=== PATIENT | male | born 1970 | race Caucasian/White ===

== ENCOUNTER 2019-01-03 09:04 | Emergency (ER) | payer SELFPAY ==
[2019-01-03] MEDS ORDERED: HYDROmorphone 1 MG/ML Syringe IVPUSH ONE (09:29)
[2019-01-03] MEDS ORDERED: Metoclopramide 10 MG/2 ML SDV IVPUSH ONE (09:30)
[2019-01-03] MEDS ORDERED: Ketorolac 30 MG/ML SDV IVPUSH SCH (09:30)
[2019-01-03] MEDS ORDERED: Sodium Chloride 0.9% 1,000 ML IV SCH (09:30)
--- NOTE | 2019-01-03 09:43 | EDM.PDOC ---
ED HPI GENERAL MEDICAL PROBLEM - General Chief Complaint: Flank Pain Stated Complaint: SIDE PAIN Time Seen by Provider: 01/03/19 09:28 Source of Information: Reports: Patient History Limitations: Reports: No Limitations - History of Present Illness INITIAL COMMENTS - FREE TEXT/NARRATIVE: 48-year-old male presents the ED with acute onset of right flank pain rating down to his right groin and right testicle. Patient states he has a history of kidney stones but the last one was many years ago. He did have some pain in his right flank about a month ago while he was in [place] but he did not see a physician in this timeframe. Pain settled after 6 or 8 hours. She has vomited once from the intensity of the pain. He still has a feeling of need to void and his bowels have worked once as well. He started about 0630 hrs. this morning shortly after he got up and ready for the day. Has intensified as the day has gone on. 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 Right Flank Pain Score (Numeric/FACES): 5 - Related Data Allergies Allergy/AdvReac Type Severity Reaction Status Date / Time povidone-iodine Allergy Hives Verified 01/03/19 09:11 [From Betadine] soap [From Betadine] Allergy Hives Verified 01/03/19 09:11 Home Meds: Home Meds Acetaminophen [Tylenol Extra Strength] 1,000 mg PO DAILY PRN 01/03/19 [History] Fluticasone Propionate [Flovent Hfa] 12 gm IH ASDIRECTED PRN 01/03/19 [History] Ibuprofen 800 mg PO DAILY 01/03/19 [History] Ondansetron [Zofran] 4 mg BUCCAL Q6H PRN #6 tab 01/03/19 [Rx] oxyCODONE HCl/Acetaminophen [Percocet 5-325 mg Tablet] 1 - 2 each PO Q4H PRN # 20 tablet 01/03/19 [Rx] Past Medical History HEENT History: Reports: None Cardiovascular History: Reports: None Respiratory History: Reports: Asthma Gastrointestinal History: Reports: None Genitourinary History: Reports: Renal Calculus Musculoskeletal History: Reports: Back Pain, Chronic Other Musculoskeletal History: L5S1 fusion Neurological History: Reports: Concussion, Migraines Psychiatric History: Reports: None Endocrine/Metabolic History: Reports: None Hematologic History: Reports: None Immunologic History: Reports: None Oncologic (Cancer) History: Reports: None Dermatologic History: Reports: None - Infectious Disease History Infectious Disease History: Reports: None - Past Surgical History HEENT Surgical History: Reports: Oral Surgery Respiratory Surgical History: Reports: None Social & Family History - Family History Family Medical History: Noncontributory : Reports: Renal Calculus - Tobacco Use Smoking Status *Q: Never Smoker - Caffeine Use Caffeine Use: Reports: Coffee, Soda - Recreational Drug Use Recreational Drug Use: No - Living Situation & Occupation Living situation: Reports: Single Occupation: Employed ED ROS GENERAL - Review of Systems Review Of Systems: See Below Constitutional: Reports: No Symptoms HEENT: Reports: Rhinitis (Chronic rhinitis allergic rhinitis) Respiratory: Reports: No Symptoms Cardiovascular: Reports: No Symptoms Endocrine: Reports: No Symptoms GI/Abdominal: Reports: Abdominal Pain (See history of present illness.) : Reports: Frequency, Other (Pain radiating from the abdomen down into the right groin and testicle.) Musculoskeletal: Reports: Back Pain Skin: Reports: Diaphoresis Neurological: Reports: No Symptoms Psychiatric: Reports: No Symptoms Hematologic/Lymphatic: Reports: No Symptoms Immunologic: Reports: No Symptoms ED EXAM, RENAL/ - Physical Exam Exam: See Below Exam Limited By: No Limitations General Appearance: Alert, WD/WN, Moderate Distress (In obvious discomfort.) Eye Exam: Bilateral Eye: Normal Inspection Respiratory/Chest: No Respiratory Distress, Lungs Clear, Normal Breath Sounds, Chest Non-Tender Cardiovascular: Normal Peripheral Pulses, Regular Rate, Rhythm, No Edema, No Gallop, No Murmur, No Rub GI/Abdominal: Soft, Non-Tender, No Organomegaly, No Abnormal Bruit, No Mass, Pelvis Stable, Abnormal Bowel Sounds (Male) Exam: No Hernia Back Exam: Normal Inspection, Full Range of Motion, CVA Tenderness (R). No: CVA Tenderness (L) (Mild) Extremities: Normal Inspection, Normal Range of Motion, Non-Tender, No Pedal Edema Neurological: Alert, Oriented, CN II-XII Intact, Normal Cognition, Normal Gait Psychiatric: Other (In a good deal of pain.) Skin Exam: Warm, Dry, Intact, Normal Color Course - Vital Signs Last Recorded V/S: Last Vital Signs Temp 36.2 C 01/03/19 09:15 Pulse 60 01/03/19 09:15 Resp 16 01/03/19 09:15 BP 183/100 H 01/03/19 09:15 Pulse Ox 100 01/03/19 09:15 - Orders/Labs/Meds Labs: Laboratory Tests 01/03/19 Range/Units 09:00 Urine Color Dark yellow (Yellow) Urine Appearance Cloudy H (Clear) Urine pH 7.0 (5.0-8.0) Ur Specific [place] > or = 1.030 (1.005-1.030) Urine Protein 2+ H (Negative) Urine Glucose (UA) Negative (Negative) Urine Ketones Negative (Negative) Urine Occult Blood 3+ H (Negative) Urine Nitrite Negative (Negative) Urine Bilirubin 1+ H (Negative) Urine Urobilinogen 0.2 (0.2-1.0) Ur Leukocyte Esterase Negative (Negative) Urine RBC >100 H (0-5) /hpf Urine WBC Not seen (0-5) /hpf Ur Epithelial Cells 0-5 (0-5) /hpf Urine Bacteria Few (FEW) /hpf Urine Mucus Moderate H (FEW) /hpf Meds: Medications Discontinued Medications Generic Name Dose Route Start Last Admin Trade Name Nancy PRN Reason Stop Dose Admin Hydromorphone HCl 0.5 mg 01/03/19 09:29 01/03/19 09:38 Dilaudid IVPUSH 01/03/19 09:30 0.5 mg ONETIME ONE Administration Sodium Chloride 1,000 mls @ 150 mls/hr 01/03/19 09:30 01/03/19 09:39 Normal Saline IV 150 mls/hr ASDIRECTED JULIANO Administration Ketorolac Tromethamine 30 mg 01/03/19 09:30 01/03/19 09:37 Toradol IVPUSH 30 mg ONETIME JULIANO Administration Metoclopramide HCl 10 mg 01/03/19 09:30 01/03/19 09:36 Reglan IVPUSH 01/03/19 09:31 10 mg ONETIME ONE Administration - Radiology Interpretation Free Text/Narrative:: 48-year-old male presents to the ED with acute onset of right flank pain radiating down to his right groin and testicle. States it started in his right hemiabdomen down to the testicle and groin about 0630 hrs. this morning about a half hour after he got up for the day. Then appreciated some pain radiating up into his right flank as well. Patient has a history of kidney stones in the past but not for many years. He did have some right flank and upper abdominal pain about a month ago while in [place] but he did not seek medical attention at the time and the pain seemed to leave him within a few hours. Associated nausea and vomiting this morning and 2 bowel movements. Plan IV normal saline at 150 mils per hour. Dilaudid 0.5 mg IV with Toradol 30 mg IV and Reglan 10 mg IV for pain and nausea relief. Urinalysis to be obtained and CT of the abdomen per renal protocol as well. - Re-Assessments/Exams Free Text/Narrative Re-Assessment/Exam: 01/03/19 11:14: CT of the abdomen reveals no significant hydronephrosis on the right side. He does have a 6.5 mm stone wedged in the proximal right ureter proximal be 5 inches below the renal pelvis. No other stones are evident within the right renal parenchyma. On the left side there is a 6.2 mm stone embedded within the renal parenchyma. No obstructing stones are evident. Visualized portions of the lower lungs are clear. Cardiac silhouette appears normal. Liver is homogeneous and normal in appearance gallbladder contains no calcified gallstones. Pancreas is normal. Adrenal glands are normal. Spleen is normal. Bowel shows a bit of stool throughout the colon. Bladder appears normal there are a few phleboliths in the pelvis and one in his prostate gland or corpora amylacea. Urinalysis shows 2+ protein 3+ occult blood 1+ bilirubin greater than 100 red blood cells per high-power field with no white cells. Moderate mucus. Patient is pain-free after IV analgesia. He will be discharged to home to start screening his urine once the pain starts up again. Since the stone is 6.5 mm it has only about a 40% chance of passing on its own. Advised making a phone call to urology services either Dr. Henrique wilhelm or Dr. Cris Torres for follow-up in 2 weeks time. Past that timeframe he will require lithotripsy. Discharged on Percocet tabs 5/325 mg tabs one or 2 every 4-6 hours needed for pain relief 14 tablets. Zofran 4 mg sublingually every 6 hours. For nausea or vomiting. Again follow-up if stone is not passed in the next 2 weeks Departure - Departure Time of Disposition: 11:07 Disposition: Home, Self-Care 01 Condition: Fair Clinical Impression: Renal colic on right side - Discharge Information *PRESCRIPTION DRUG MONITORING PROGRAM REVIEWED*: Not Applicable *COPY OF PRESCRIPTION DRUG MONITORING REPORT IN PATIENT ADITYA: Not Applicable Prescriptions: Ondansetron [Zofran] 4 mg BUCCAL Q6H PRN #6 tab PRN Reason: nausea or vomiting oxyCODONE HCl/Acetaminophen [Percocet 5-325 mg Tablet] 1 - 2 each PO Q4H PRN # 20 tablet PRN Reason: pain relief. Instructions: Renal Colic, [id number] Referrals: PCP,None [Primary Care Provider] - Forms: ED Department Discharge Additional Instructions: Evaluation the emergency room today in regards to development of acute onset of right flank pain radiating down to the right groin and testicle. The presentation is that of renal colic and you have a history of kidney stones in the past. You're treated with intravenous fluids and Dilaudid 1 mg with Toradol 30 mg and Reglan 10 mg IV to alleviate pain and nausea. CT scan of the abdomen and pelvis was performed without contrast and identified a 6.5 mm stone in the mid right ureter. Therefore this has only about a 40% chance of passing on its own. No further stones were identified within the right kidney tissue itself. There is a 6.3 mm stone embedded in the tissue of the left kidney which may or may not be a problem in the future. It is my suggestion that you start straining a urine once the pain reoccurs as the stone has about 8 inches to travel to the urinary bladder. I would suggest making a appointment with urology services in [place]. phone number is [phone]. Alternatively if he is not available Dr. Greco at [phone]. Would suggest an appointment in about 2 weeks' time. If the stone is not passed in that duration and follow-up with urology services is advised and they would be able to set up lithotripsy to remove the stone. I have sent him prescriptions for Zofran 4 mg under the tongue every 4-6 hours needed for relief of nausea or vomiting. Percocet tabs 5/325 mg 2 tablets at onset of pain as needed every 6 hours. Start straining her urine to see if the stone is passed only once the pain starts up again. Return to the hospital if you develop any fever chills nausea vomiting or pain is uncontrolled with oral medications.
--- NOTE | 2019-01-03 10:26 | CT ---
CT abdomen and pelvis Technique: Multiple axial sections were obtained from the top the liver inferiorly through the pubic symphysis. Intravenous and oral contrast not utilized. Study has been performed as a ureteral stone protocol. Findings: Mild right-sided hydronephrosis is seen. This finding is caused by an obstructing right ureteral stone measuring 6.5 mm which is located within the proximal ureter slightly past the UPJ. No other ureteral calculi are seen. Nonobstructing stone is identified within the upper left kidney measuring 6.3 mm. Other findings: Small portion of the visualized lung bases show nothing acute. Fatty infiltration is noted throughout the liver. No additional abnormality appreciated within the liver. Spleen appears within normal limits. Adrenal glands show no nodule. Pancreas is within normal limits. Aorta shows no aneurysm. Gallbladder contains no calcified gallstones. No retroperitoneal adenopathy or mesenteric abnormalities are seen. No pelvic mass or adenopathy is seen. Appendix is seen which is normal in size. No free fluid or inflammatory change is seen. Bone window settings were reviewed which show previous lumbar spine surgery at L5-S1. Minimal degenerative change scattered within the spine. Impression: 1. Obstructing 6.5 mm right ureteral stone located slightly past the UPJ causing proximal hydronephrosis. 2. Nonobstructing stone within the upper left kidney measuring 6.3 mm. 3. Other incidental findings as noted above. Diagnostic code #3
== END 2019-01-03 11:21 | disposition home or self-care (01) ==
LOC: JD.ED 09:04 → EDBD 09:04 → JD.ED 11:21
DX: N23 Unspecified renal colic (principal); Z88.8 Allergy status to other drugs, medicaments and biological substances
CPT/HCPCS: 74176; 81001; 96361; 96374; 96375; 99284; J1170; J1885; J2765; J7040